=== PATIENT | male | born 1955 | race Caucasian/White ===

== ENCOUNTER → 2020-09-20 | Outpatient (CLI) | payer OTHER ==
[~2020-09-20] MED LIST: APIDRA SOL100 UNIT/1 SQ; APRISO0.375 GM PO; TOUJEO SQ
== END ==
LOC: KOH-I 09-09 16:00
DX: J45.909 Unspecified asthma, uncomplicated (principal)
CPT/HCPCS: 71250

== ENCOUNTER → 2020-09-20 | Outpatient (CLI) | payer OTHER | LOC: HEART 5 08:56 | DX: J45.909 Unspecified asthma, uncomplicated (principal) | CPT/HCPCS: 94060; 94729 ==